=== PATIENT | female | born 1945 | race Caucasian/White ===

== ENCOUNTER 2016-08-12 06:28 | Emergency (ER) | payer MEDICAID ==
[2016-08-12 07:37] LABS: HEMATOCRIT 32.5 % (35.0-45.0); HEMOGLOBIN 10.9 gm/dL (11.7-16.1); MEAN CORPUSCULAR HEMOGLOBIN 30.5 pg (27.0-31.0); MEAN CORPUSCULAR HGB CONC 33.5 pg (28.0-36.0); PLATELET COUNT 252 Th/cmm (150-400); RED BLOOD COUNT 3.57 Mil/cmm (3.80-5.20); RED CELL DISTRIBUTION WIDTH 14.8 % (11.5-20.0); WHITE BLOOD COUNT 5.2 Th/cmm (4.8-10.8)
[2016-08-12 07:54] LABS: INR 1.1 (0.5-1.4)
[2016-08-12 08:00] LABS: ALB/GLOB RATIO 0.8 (1.0-1.8); ANION GAP 10.6 (7.0-16.0); BILIRUBIN,TOTAL 0.4 mg/dL (0.3-1.0); BUN/CREATININE RATIO 8.7; CALCIUM SERUM 9.5 mg/dL (8.6-10.3); CHOLESTEROL 108 mg/dL (<200); POTASSIUM SERUM 4.6 mEq/L (3.5-5.1); TRIGLYCERIDES 137 mg/dL (<150)
--- NOTE | 2016-08-12 08:39 | ED Physician Chart ---
Chief Complaint/HPI - Patient Information Date Seen:: 08/12/16 Time Seen:: 06:45 Chief Complaint:: cough History of Present Illness:: THIS IS A 70 YO FEMALE DIABETIC DIALYSIS PATIENT WITH A COUGH TREATED BY HER PMD WITH Z-LEN. SHE STATES THAT SHE IS STILL COUGHING ABOUT THE SAME. SHE HAD DIALYSIS YESTERDAY. SHE DENIES FEVER OVER THE LAST FEW DAYS. Allergies:: Allergies Allergy/AdvReac Type Severity Reaction Status Date / Time No Known Allergies Allergy Verified 05/17/16 16:44 Vitals:: Vital Signs - 8 hr 08/12/16 06:35 Temp 97.8 F HR 66 RR 20 BP 131/80 O2 Sat % 97 Historian:: Patient, Family Member Review:: Nurse's Note Reviewed Review of Systems - Review of Systems General/Constitutional: No fever, No chills, No weight loss, No weakness, No diaphoresis, No edema, No loss of appetite Skin: No skin lesions, No rash, No bruising Head: No headache, No light-headedness Eyes: No loss of vision, No pain, No diplopia ENT: No earache, No nasal drainage, No sore throat, No tinnitus Neck: No neck pain, No swelling, No thyromegaly, No stiffness, No mass noted Cardio Vascular: No chest pain, No palpitations, No PND, No orthopnea, No edema Pulmonary: No SOB, Cough, No sputum, No wheezing GI: No nausea, No vomiting, No diarrhea, No pain, No melena, No hematochezia, No constipation, No hematemesis G/U: No dysuria, No frequency, No hematuria Musculoskeletal: No bone or joint pain, No back pain, No muscle pain Endocrine: No polyuria, No polydipsia Psychiatric: No prior psych history, No depression, No anxiety, No suicidal ideation Hematopoietic: No bruising, No lymphadenopathy Allergic/Immuno: No urticaria, No angioedema Neurological: No syncope, No focal symptoms, No weakness, No paresthesia, No headache, No seizure, No dizziness, No confusion, No vertigo Past Medical History - Past Medical History Obtainable: Yes Past Medical History: HTN, DM, ESRD Family History: None Social History: Non Smoker, No Alcohol, No Drug Use Surgical History: other (CATHETER PLACEMENT) Psychiatricy History: None Medication: Reviewed Family Medical History - Family Member Mother History Unknown: Yes Ethnicity: Living Status: Hx Family Diabetes: Yes Other Medical History: Lung Disease Physical Exam - Physical Examination General/Constitutional: Awake, Well-developed, well-nourished, Alert, No distress, GCS 15, Non-toxic appearing, Ambulatory Head: Atraumatic Eyes: Lids, conjuctiva normal, PERRL, EOMI Skin: Nl inspection, No rash, No skin lesions, No ecchymosis, Well hydrated, No lymphadenopathy ENMT: External ears, nose nl, Nasal exam nl, Lips, teeth, gums nl Neck: Nontender, Full ROM w/o pain, No JVD, No nuchal rigidity, No bruit, No mass, No stridor Respiratory: Nl effort/Exclusion, Clear to Auscultation Other Respiratory comments:: BILATERAL MILD WHEEZES BUT NO RALES HEARD. Cardio Vascular: RRR, No murmur, gallop, rubs, NL S1 S2 GI: No tenderness/rebounding/guarding, No organomegaly, No hernia, Normal BS's, Nondistended, No mass/bruits, No McBurney tenderness : No CVA tenderness Extremities: No tenderness or effusion, Full ROM, normal strength in all extremities, No edema, Normal digits & nails Neuro/Psych: Alert/oriented, DTR's symmetric, Normal sensory exam, Normal motor strength, Judgement/insight normal, Mood normal, Normal gait, No focal deficits Misc: normal gait, Normal back, No paraspinal tenderness Labs/Radiology/EKG Results - Lab Results Results: Laboratory Tests 08/12/16 08/12/16 08/12/16 07:20 07:20 07:20 WBC 5.2 RBC 3.57 L Hgb 10.9 L Hct 32.5 L MCV 91.0 MCH 30.5 MCHC Differential 33.5 RDW 14.8 Plt Count 252 MPV 7.0 PT 11.0 INR 1.10 PTT (Actin FS) 27.5 Sodium Potassium Chloride Carbon Dioxide Anion Gap BUN Creatinine Est GFR ( Amer) Est GFR (Non-Af Amer) BUN/Creatinine Ratio Glucose Calcium Total Bilirubin AST ALT Alkaline Phosphatase Troponin I Total Protein Albumin Globulin Albumin/Globulin Ratio Triglycerides 137 Cholesterol 108 LDL Cholesterol Direct 46 L HDL Cholesterol 25 08/12/16 08/12/16 07:20 07:20 WBC RBC Hgb Hct MCV MCH MCHC Differential RDW Plt Count MPV PT INR PTT (Actin FS) Sodium 135 L Potassium 4.6 Chloride 97 L Carbon Dioxide 32.0 H Anion Gap 10.6 BUN 52 H Creatinine 6.0 H* Est GFR ( Amer) 8.9 Est GFR (Non-Af Amer) 7.4 BUN/Creatinine Ratio 8.7 Glucose 79 Calcium 9.5 Total Bilirubin 0.4 AST 42 H ALT 22 Alkaline Phosphatase 94 Troponin I 0.26 H* D Total Protein 7.3 Albumin 3.3 L Globulin 4.0 Albumin/Globulin Ratio 0.8 L Triglycerides Cholesterol LDL Cholesterol Direct HDL Cholesterol ED Septic Shock - . Is Septic Shock (SBP<90, OR Lactate>4 mmol\L) present?: No - <6hrs of presentation: Vital Signs: Vital Signs - 8 hr 08/12/16 06:35 Temp 97.8 F HR 66 RR 20 BP 131/80 O2 Sat % 97 Reassessment (Disposition) - Reassessment Reassessment Condition:: Improved - Diagnosis Diagnosis:: BRONCHITIS ESRD DIABETES MELLITUS - Aftercare/Follow up Instructions Aftercare/Follow-Up Instructions:: Counseled pt regarding lab results/diagnosis & need follow up, Refer to Discharge Instructions, Counseled pt & family regarding lab results/diagnosis & need follow up Medication Prescribed:: PREDNISONE - Patient Disposition Discharge/Transfer:: Home Condition at Disposition:: Improved ED Discharge Plan - Patient Disposition Admit/Discharge/Transfer: PT DISCHARGED HOME Condition at Disposition: Improved Additional Instructions: FINISH THE Z-LEN TAKE THE NEW MEDICINE SEE YOU PMD ON SUNDAY RETURN FOR ANY PROBLEM
--- NOTE | 2016-08-12 10:06 | Diagnostic Imaging Report ---
Portable chest x-ray History: Shortness of breath Allowing for portable technique the heart size is normal. No focal pulmonary parenchymal processes. No hilar or mediastinal abnormalities. Impression: No acute abnormalities.
[2016-08-12 12:31] LABS: BAND NEUTROPHILE 2 % (0-10); EOSINOPHIL 2 % (0-5); NEUTROPHILS 54 % (40-80); PLATELET ESTIMATE ADEQUATE (NORMAL); PLATELET MORPHOLOGY NORMAL (NORMAL); TOTAL CELLS COUNTED 100
== END 2016-08-12 09:37 | disposition home or self-care (01) ==
LOC: ER 06:28
DX: J40 Bronchitis, not specified as acute or chronic (principal); E11.22 Type 2 diabetes mellitus with diabetic chronic kidney disease; I12.0 Hypertensive chronic kidney disease with stage 5 chronic kidney disease or end stage renal disease; N18.6 End stage renal disease
CPT/HCPCS: 99285; 71010; 96372 ×2; 93005; 84484; 36415; 84443; 86592; 85007; 85027; 85610; 85730; 80053; 80061; 87040 ×2; J0696 ×2; J2930; A4216; J2001

== ENCOUNTER 2016-08-13 21:26 | Inpatient (IN) | payer MEDICAID ==
--- NOTE | 2016-08-13 22:03 | ED Physician Chart ---
Chief Complaint/HPI - Patient Information Date Seen:: 08/13/16 Time Seen:: 21:50 Chief Complaint:: Recurrent nausea and vomiting since yesterday. History of Present Illness:: Brought in by [id number] Lucia for the above reason. Pt is Yakut speaking. Interpretation is provided by her [id number] Lucia per pt's request. Vomitus consists of gastric content. No hematemesis. Last BM 2 days ago that was normal in color/consistency. No hematochezia or melena. No lightededness. Pt states that her nausea/vomiting began to occur after she was started on Zithromax for acute bronchitis. Her cough has subsided. No abdominal pain, chest pain or other bodily pain or discomfort. No dyspnea. Allergies:: Allergies Allergy/AdvReac Type Severity Reaction Status Date / Time No Known Allergies Allergy Verified 05/17/16 16:44 Vitals:: see Nurse Note. Historian:: Patient, Family Member ([id number] Lucia.) Family MD/PCP:: Dr. Wray. LMP:: Postmenopausal Review:: Nurse's Note Reviewed Review of Systems - Review of Systems Skin: No skin lesions, No rash, No bruising Head: No headache, No light-headedness Eyes: No loss of vision, No pain, No diplopia ENT: No earache, No nasal drainage, No sore throat, No tinnitus Neck: No neck pain, No swelling, No thyromegaly, No stiffness, No mass noted Cardio Vascular: No chest pain, No palpitations, No PND, No orthopnea, No edema Pulmonary: No SOB, No cough, No sputum, No wheezing GI: Nausea, Vomiting (see HPI.), No diarrhea, No pain, No melena, No hematochezia, No constipation, No hematemesis G/U: No dysuria, No frequency, No hematuria Musculoskeletal: No bone or joint pain, No back pain, No muscle pain Endocrine: No polyuria, No polydipsia Psychiatric: No prior psych history Hematopoietic: No bruising, No lymphadenopathy Allergic/Immuno: No urticaria, No angioedema Neurological: No syncope, No focal symptoms, No weakness, No paresthesia, No headache, No seizure, No dizziness, No confusion, No vertigo Past Medical History - Past Medical History Past Medical History: DM, Dyslipidemia, ESRD (on hemodialysis M, W, F.), Other ( chronic anemia) Family History: Diabetes Melitus (mother), HTN (mother) Social History: Non Smoker, No Alcohol, No Drug Use, , Other (lives with her .) Employment:: Retired. Surgical History: (31 y/a.), other (Bilateral big toe resections about 11 y/a.) Psychiatricy History: None Medication: Reviewed Family Medical History - Family Member Mother History Unknown: Yes Ethnicity: Living Status: Hx Family Diabetes: Yes Physical Exam - Physical Examination General/Constitutional: Awake, Well-developed, well-nourished, Alert, No distress, Non-toxic appearing, Ambulatory Other Gen/Cons comments:: Breathes comfortably, speaks clearly, and ambulates without difficulty. Head: Atraumatic Eyes: Lids, conjuctiva normal, PERRL, EOMI Skin: Nl inspection, No rash, No skin lesions, No ecchymosis, Well hydrated, No lymphadenopathy ENMT: External ears, nose nl, Nasal exam nl, Oropharynx nl, Tonsils nl Neck: Nontender, Full ROM w/o pain, No JVD, No nuchal rigidity, No bruit, No mass, No stridor Respiratory: Nl effort/Exclusion, Clear to Auscultation, No Wheeze/Rhonchi/Rales Cardio Vascular: RRR, No murmur, gallop, rubs, Carotid/Femoral/Distal pulses equal bilaterally GI: No tenderness/rebounding/guarding, No organomegaly, No hernia, Normal BS's, Nondistended, No mass/bruits, No McBurney tenderness Other GI comments:: obese but soft. Extremities: No edema Neuro/Psych: Alert/oriented (oriented x 3), Mood normal, Normal gait, No focal deficits Other Neuro/Psych comments:: spontaneous movements noticed in all 4 extremities. Labs/Radiology/EKG Results - Lab Results Results: Laboratory Tests 08/13/16 08/13/16 08/13/16 22:31 22:31 22:31 WBC RBC Hgb Hct MCV MCH MCHC Differential RDW Plt Count MPV Band Neutrophils % Neutrophils (Manual) Lymphocytes Monocytes Platelet Estimate PT 10.8 INR 1.08 PTT (Actin FS) 24.8 L Sodium 133 L Potassium 5.5 H Chloride 91 L Carbon Dioxide 24.1 Anion Gap 23.4 H BUN 114 H* Creatinine 8.9 H* Est GFR ( Amer) 5.7 Est GFR (Non-Af Amer) 4.7 BUN/Creatinine Ratio 12.8 Glucose 189 H Calcium 9.8 Total Bilirubin 0.4 AST 27 ALT 18 Alkaline Phosphatase 93 Creatine Kinase 103 Troponin I 0.12 H* D Total Protein 7.7 Albumin 3.7 Globulin 4.0 Albumin/Globulin Ratio 0.9 L 08/13/16 22:31 WBC 10.3 D RBC 3.44 L Hgb 10.4 L Hct 31.3 L MCV 91.1 MCH 30.3 MCHC Differential 33.3 RDW 15.0 Plt Count 290 MPV 7.3 Band Neutrophils % 2 Neutrophils (Manual) 85 H Lymphocytes 10 L Monocytes 3 Platelet Estimate ADEQUATE PT INR PTT (Actin FS) Sodium Potassium Chloride Carbon Dioxide Anion Gap BUN Creatinine Est GFR ( Amer) Est GFR (Non-Af Amer) BUN/Creatinine Ratio Glucose Calcium Total Bilirubin AST ALT Alkaline Phosphatase Creatine Kinase Troponin I Total Protein Albumin Globulin Albumin/Globulin Ratio Urinalysis pending. - EKG Interpretations EKG Time:: 22:30 Rhythm: NSR Rate: 63 Comments:: Cannot r/o old anterior LA, age undetermined. No acute ischemic changes. Assessment - Assessment Critical Care Time: 35 minutes approx. ED Septic Shock - . Is Septic Shock (SBP<90, OR Lactate>4 mmol\\L) present?: No Reassessment (Disposition) - Reassessment Reassessment:: 2319 Pt remains stable. Lab results just became available. EKG, and available lab findings have been reviewed with pt. Management plan has been discussed. Interpretation by [id number] Lucia. Dr. Spivey is to be contacted. Pt has been put on NTP 1" topically to improve coronary perfusion and to lower blood pressure. 2349 Case was discussed with Dr. Spivey with H & P, EKG, and lab findings reviewed. He concurred to have pt treated with Kayexalate 30 gm po. Pt is to be admitted to ICU under his care. Reassessment Condition:: Improved - Diagnosis Diagnosis:: Recurrent nausea/vomiting related to medication effect of Zithromax. Elevated troponin I of unknown significance. Consider ischemic heart disease. HTN, poorly controlled, improved. ESRD, on hemodialysis. - Patient Disposition Admitted to:: ICU Admitting Medical Physician:: Omar Spivey Time:: 23:55 Condition at Disposition:: Stable, Improved
[2016-08-13 22:45] LABS: HEMATOCRIT 31.3 % (35.0-45.0); HEMOGLOBIN 10.4 gm/dL (11.7-16.1); MEAN CELL VOLUME 91.1 fl (81-100); MEAN CORPUSCULAR HEMOGLOBIN 30.3 pg (27.0-31.0); MEAN CORPUSCULAR HGB CONC 33.3 pg (28.0-36.0); MEAN PLATELET VOLUME 7.3 fl; PLATELET COUNT 290 Th/cmm (150-400); RED BLOOD COUNT 3.44 Mil/cmm (3.80-5.20)
[2016-08-13 22:48] LABS: WHITE BLOOD COUNT 10.3 Th/cmm (4.8-10.8)
[2016-08-13 22:55] LABS: ALB/GLOB RATIO 0.9 (1.0-1.8); ANION GAP 23.4 (7.0-16.0); BILIRUBIN,TOTAL 0.4 mg/dL (0.3-1.0); BUN/CREATININE RATIO 12.8; CALCIUM SERUM 9.8 mg/dL (8.6-10.3); CARBON DIOXIDE 24.1 mEq/L (21.0-31.0); POTASSIUM SERUM 5.5 mEq/L (3.5-5.1)
[2016-08-13 22:56] LABS: INR 1.08 (0.5-1.4); PROTHROMBIN TIME (TEST) 10.8 SECONDS (9.5-11.5)
[2016-08-13 23:07] LABS: CREATININE - SERUM 8.9 mg/dL (0.6-1.2)
[2016-08-13 23:14] LABS: BAND NEUTROPHILE 2 % (0-10); NEUTROPHILS 85 % (40-80); PLATELET ESTIMATE ADEQUATE (NORMAL); TOTAL CELLS COUNTED 100
[2016-08-13] MEDS ORDERED: NITROGLYCERIN OINT 2% 1 INCH PACKET TP STA (23:22)
[2016-08-13] MEDS ORDERED: NITROGLYCERIN OINT 2% 1 INCH PACKET TP ONE (23:41)
[2016-08-14] MEDS ORDERED: Hydrocodone/APAP 10 mg/325 mg Tab PO PRN (01:40)
[2016-08-14] MEDS ORDERED: Magnesium Hydroxide (MOM) 30 mL UDC PO PRN (01:40)
[2016-08-14] MEDS ORDERED: Maalox 30 mL Cup PO PRN (01:40)
[2016-08-14] MEDS: Guaifenesin DM 10 ML UDC PO PRN (05:25)
--- NOTE | 2016-08-14 05:29 | History & Physical ---
CHIEF COMPLAINT: The patient has recurrent nausea and vomiting. HISTORY OF PRESENT ILLNESS: The patient is a 70-year-old female brought in by her [id number] for recurrent nausea and vomiting since yesterday. The patient's vomitus had gastric content. No hematemesis. Last time was 2 days ago and was normal in color and consistency. No hematochezia or melena. The patient's nausea and vomiting began to correct, she was started on Zithromax for acute bronchitis. Her cough has subsided. Dull pain, chest pain are the complaints. ALLERGIES: No known allergies. PAST MEDICAL HISTORY: Dyslipidemia, bronchitis, anemia, end-stage renal disease, diabetes mellitus. PAST SURGICAL HISTORY: C section, bilateral big toe resection, AV fistula. SOCIAL HISTORY: No reports of smoking or drug use. MEDICATIONS: See med rec form. PHYSICAL EXAMINATION: GENERAL: The patient is awake, alert, nontoxic appearing. VITAL SIGNS: Temperature 98.8, pulse 86, blood pressure 192/84, respirations 19, O2 saturation 97% on room air. HEENT: Normocephalic, atraumatic. Extraocular movements intact. Oropharynx clear. NECK: Supple, no thyromegaly or lymph node. RESPIRATORY: Clear, no wheeze or rhonchi. CARDIOVASCULAR: S1, S2, no murmurs, rubs or gallops. GASTROINTESTINAL: Soft, nontender, nondistended, positive bowel sounds. GENITOURINARY: No CVA tenderness or suprapubic tenderness. EXTREMITIES: Equal pulses bilaterally. No C/C/E. SKIN: Negative. NEUROLOGIC: Cranial nerves intact. Extraocular movements are intact. Sensation is intact. Motor strength is intact. PSYCHIATRIC: Negative. LABORATORY STUDIES: Labs on admission, hematology, WBC 10.3, hemoglobin 10.4, hematocrit 31.3, platelet count of 290, 85% neutrophils, 10% lymphocytes. PT 10.8, INR 1.08, PTT 24.8. Chemistry, sodium 133, potassium 5.5, chloride 91, bicarbonate 24, anion gap 23.4, BUN 114, creatinine 8.9, GFR is 4.7, glucose is 189, calcium 9.8, total bili 0.4, AST 27, ALT 18, alkaline phosphatase 93, creatinine kinase 103, troponin is 0.12, total protein 7.7, albumin 3.7. RADIOLOGY: No new results. ASSESSMENT: 1. Intermittent nausea and vomiting. 2. Elevated troponin level. 3. Hypertension (controlled). 4. End-stage renal disease. 5. Hemodialysis dependent. 6. Diabetes mellitus. 7. Dyslipidemia. 8. Anemia of chronic disease. 9. Status post arteriovenous fistula. PLAN: The patient was admitted to ICU. Nephrology consultation, Dr. Wray. Cardiology consultation, Dr. Gen Spivey. Thank you very much. JOB# [id number]
[2016-08-14 05:35] LABS: % BASOPHILS 0.2 % (0.0-2.0); % EOSINOPHILS 0.6 % (0.0-5.0); % LYMPHOCYTES 12.8 % (20.0-50.0); % MONOCYTES 4.8 % (2.0-10.0); % NEUTROPHILS 81.6 % (40.0-80.0); HEMATOCRIT 31.4 % (35.0-45.0); HEMOGLOBIN 10.8 gm/dL (11.7-16.1); MEAN CORPUSCULAR HEMOGLOBIN 30.7 pg (27.0-31.0); MEAN CORPUSCULAR HGB CONC 34.5 pg (28.0-36.0); MEAN PLATELET VOLUME 7.6 fl; NEUTROPHILE ABSOLUTE 10.8 Th/cmm (1.8-8.0); PLATELET COUNT 302 Th/cmm (150-400); RED BLOOD COUNT 3.52 Mil/cmm (3.80-5.20); RED CELL DISTRIBUTION WIDTH 14.9 % (11.5-20.0)
[2016-08-14 05:48] LABS: WHITE BLOOD COUNT 13.2 Th/cmm (4.8-10.8)
[2016-08-14 05:57] LABS: ANION GAP 19.9 (7.0-16.0); BUN/CREATININE RATIO 12.9; CALCIUM SERUM 9.7 mg/dL (8.6-10.3); CARBON DIOXIDE 26.5 mEq/L (21.0-31.0); POTASSIUM SERUM 5.4 mEq/L (3.5-5.1)
[2016-08-14 05:58] LABS: CREATININE - SERUM 9.2 mg/dL (0.6-1.2)
[2016-08-14] MEDS: Ferrous Sulfate 325 MG TAB PO SCH (08:23)
[2016-08-14] MEDS: Atorvastatin Calcium 10 MG TAB PO SCH (08:24)
[2016-08-14] MEDS: Hydrocodone/APAP 5mg/325mg Tab PO PRN ×2 (08:24→17:23)
[2016-08-14] MEDS ORDERED: CINACALCET HCL 30 MG PO SCH (09:00)
[2016-08-14] MEDS: INSULIN ASPART SLIDING SCALE 100 UNITS/ML UNIT SUBQ SCH ×3 (13:47→22:00)
[2016-08-14] MEDS: Vitamin B Complex w/Vitamin C Tab PO SCH (13:50)
[2016-08-14] MEDS ORDERED: VTE Chemical Prophylaxis Screen/Admission MC PRN (16:07)
[2016-08-14] MEDS: Ferrous Sulfate 300 MG/5 ML UDC PO SCH (17:22)
--- NOTE | 2016-08-14 17:37 | Admit Criteria Form ---
Admit Criteria Forms - Admit Criteria Diagnosis: VOMITING Clinical Indications for Admission to Inpatient Care ( Place 'X' for any and all applicable criteria): Admission is indicated for ANY ONE of the following(1)(2)(3): [X]I. Inpatient admission required rather than observation care because of ANY ONE of the following: [ ]i) Hemodynamic instability that is severe or persistent [X]ii) Vomiting that is severe or persistent [X]iii) Severe electrolyte abnormalities requiring inpatient care [ ]iv) Severe pain requiring acute inpatient management [ ]v) High fever or infection requiring inpatient admission as indicated by ANY ONE of the following(7)(8): [ ]1) Appropriate outpatient or observation care antimicrobial treatment unavailable, not effective, or not feasible [ ]2) Documented bacteremia [ ]3) Temp >104.9 degrees F (40.5 degrees C) (oral) [ ]4) Temp >103.1 degrees F (39.5 C) (oral) or <96.8 degrees F (36 C) (rectal) that does not respond to all emergency treatment measures [ ]vi) Acute renal failure [ ]vii) IV fluid to replace significant ongoing losses (greater than 3 L/m2 per day) [ ]viii) Parenteral nutrition regimen that must be implemented on inpatient basis [ ]ix) Other condition, treatment or monitoring requiring inpatient admission [ ]II. Complete or partial gastrointestinal obstruction [ ]III. Other cause of vomiting requiring hospitalization (eg, poisoning, increased intracranial pressure) [ ]IV. Vomiting due to significant metabolic derangement (eg, severe hypercalcemia, diabetic ketoacidosis) Extended stay beyond goal length of stay may be needed for(1)(4): [ ]a) Severe vomiting [ ]b) Persistent vomiting, vital sign changes, severe electrolyte imbalance , or diagnosed cause of vomiting that requires continued hospitalization (eg, gastrointestinal obstruction , increased intracranial pressure) [ ]c) Surgery to treat identified causes of vomiting (eg, bowel obstruction , intracranial process) [ ]d) Comorbid illness that requires inpatient care (eg, acute heart failure , renal failure) [ ]e) Need for inpatient endoscopy The original [employer] [employer] content created by Klaus Orourke has been revised. The portions of the content which have been revised are identified through the use of italic text or in bold, and Klaus Orourke has neither reviewed nor approved the modified material. All other unmodified content is copyright [facility]. Please see references footnoted in the original [facility] edition 2016 Admit Criteria Met?: Yes
[2016-08-15 05:03] LABS: MEAN CORPUSCULAR HGB CONC 34.2 pg (28.0-36.0); RED CELL DISTRIBUTION WIDTH 14.9 % (11.5-20.0)
[2016-08-15 05:10] LABS: % BASOPHILS 0.2 % (0.0-2.0); % EOSINOPHILS 0.7 % (0.0-5.0); % LYMPHOCYTES 15.7 % (20.0-50.0); % MONOCYTES 8.5 % (2.0-10.0); % NEUTROPHILS 74.9 % (40.0-80.0); HEMATOCRIT 31.8 % (35.0-45.0); HEMOGLOBIN 10.9 gm/dL (11.7-16.1); MEAN CELL VOLUME 91.6 fl (81-100); MEAN CORPUSCULAR HEMOGLOBIN 31.3 pg (27.0-31.0); MEAN PLATELET VOLUME 6.9 fl; NEUTROPHILE ABSOLUTE 8.8 Th/cmm (1.8-8.0); PLATELET COUNT 291 Th/cmm (150-400); RED BLOOD COUNT 3.47 Mil/cmm (3.80-5.20); WHITE BLOOD COUNT 11.8 Th/cmm (4.8-10.8)
[2016-08-15 05:39] LABS: ALB/GLOB RATIO 0.9 (1.0-1.8); ANION GAP 13.2 (7.0-16.0); BILIRUBIN,TOTAL 0.5 mg/dL (0.3-1.0); BUN/CREATININE RATIO 10.2; CALCIUM SERUM 9.1 mg/dL (8.6-10.3); CARBON DIOXIDE 30.9 mEq/L (21.0-31.0); PHOSPHOROUS 3.4 mg/dL (2.5-5.0); POTASSIUM SERUM 4.1 mEq/L (3.5-5.1)
[2016-08-15 05:48] LABS: CREATININE - SERUM 6.3 mg/dL (0.6-1.2)
[2016-08-15] MEDS: INSULIN ASPART SLIDING SCALE 100 UNITS/ML UNIT SUBQ SCH ×3 (07:30→17:11)
[2016-08-15] MEDS: Vitamin B Complex w/Vitamin C Tab PO SCH (08:25)
[2016-08-15] MEDS: Atorvastatin Calcium 10 MG TAB PO SCH (08:25)
[2016-08-15] MEDS: Ferrous Sulfate 325 MG TAB PO SCH (08:26)
[2016-08-15] MEDS: Ferrous Sulfate 300 MG/5 ML UDC PO SCH ×2 (08:42→17:13)
--- NOTE | 2016-08-15 11:39 | Diagnostic Imaging Report ---
Chest x-ray (2 views) HISTORY: Shortness of breath Compared with prior exam of August 12, 2016, questionable faint infiltrate within the right suprahilar region. Differences may be related to radiographic technique and positioning. Clinical correlation and follow-up recommended. Old right rib fracture again noted. The heart size appears generous. IMPRESSION: 1. Questionable faint infiltrate within the right suprahilar region. Differences since the prior exams may be related to radiographic technique and positioning. Clinical correlation and follow-up recommended.
[2016-08-15] MEDS ORDERED: Epoetin Alfa 20000 Units/mL Vial SUBQ SCH (15:42)
[2016-08-15] MEDS: Guaifenesin DM 10 ML UDC PO PRN (17:19)
[2016-08-15] MEDS ORDERED: GLUCAGON HCl 1 MG KIT IM PRN (21:40)
[2016-08-15] MEDS ORDERED: Dextrose 50% 50 mL Abboject IVP PRN (21:40)
[2016-08-16 04:53] LABS: % BASOPHILS 0.4 % (0.0-2.0); % EOSINOPHILS 1.2 % (0.0-5.0); % LYMPHOCYTES 20.2 % (20.0-50.0); % NEUTROPHILS 68.2 % (40.0-80.0); HEMATOCRIT 33.8 % (35.0-45.0); HEMOGLOBIN 11.5 gm/dL (11.7-16.1); MEAN CELL VOLUME 91.3 fl (81-100); MEAN PLATELET VOLUME 6.6 fl; NEUTROPHILE ABSOLUTE 5.6 Th/cmm (1.8-8.0); PLATELET COUNT 291 Th/cmm (150-400); RED BLOOD COUNT 3.71 Mil/cmm (3.80-5.20); RED CELL DISTRIBUTION WIDTH 14.8 % (11.5-20.0)
[2016-08-16 04:56] LABS: WHITE BLOOD COUNT 8.1 Th/cmm (4.8-10.8)
[2016-08-16 05:16] LABS: ALB/GLOB RATIO 0.9 (1.0-1.8); ANION GAP 13.8 (7.0-16.0); BILIRUBIN,TOTAL 0.5 mg/dL (0.3-1.0); BUN/CREATININE RATIO 9.4; CARBON DIOXIDE 28.8 mEq/L (21.0-31.0); PHOSPHOROUS 5.9 mg/dL (2.5-5.0); POTASSIUM SERUM 4.6 mEq/L (3.5-5.1)
[2016-08-16 05:39] LABS: CREATININE - SERUM 8.8 mg/dL (0.6-1.2)
[2016-08-16] MEDS: Vitamin B Complex w/Vitamin C Tab PO SCH (08:00)
[2016-08-16] MEDS: Ferrous Sulfate 300 MG/5 ML UDC PO SCH (09:00)
[2016-08-16] MEDS: Atorvastatin Calcium 10 MG TAB PO SCH (09:00)
[2016-08-16 10:38] LABS: ABG SOURCE Arterial; ALLEN TEST Positive; BE(B) 4.5 mmol/L (-3.0-3.0); FIO2 21; HCO3 29.2 mmol/L (20.0-26.0); pH 7.44 (7.35-7.45)
[2016-08-16] MEDS: INSULIN ASPART SLIDING SCALE 100 UNITS/ML UNIT SUBQ SCH ×3 (12:30→21:26)
--- NOTE | 2016-08-16 13:41 | Diagnostic Imaging Report ---
CT Chest without IV contrast HISTORY: Shortness of breath/pneumonia COMPARISON: Chest x-ray 08/15/2016. Technique: Axial images were obtained from the base of the neck to the upper abdomen without IV contrast. Reconstructions were made. Total DLP to 20, CTD I 0.7 Findings: Assessment of the mediastinum is limited due to lack of IV contrast. No evidence of mediastinal lymphadenopathy. Mild atherosclerosis is noted. Heart size is at the upper limits of normal. No pericardial effusion. There is marked fluid distention of the stomach with what appears to be fluid contents. There may be a hiatal hernia. Assessment of the lung pavon demonstrates hypoventilatory and atelectatic changes of the lungs with focal consolidative changes seen involving the posterior /inferior aspect of the right upper lobe and along the lung bases. Trace pleural fluid is seen bilaterally. There is a 3 mm nodular opacity of the right upper lobe (image 3, series 33). There is also faint 3 mm nodular opacity of the left upper lobe (image 54, series 7). The upper abdomen demonstrates a distended gallbladder with gallstones. Atherosclerosis is noted. Degenerative changes of the spine are noted. There is a 1 cm sclerotic focus along the posterior aspect of the T5 vertebral body. IMPRESSION: Marked fluid distention of the esophagus containing fluid and food contents. There is suggestion of a moderate size hiatal hernia, however, associated with achalasia and distal esophageal narrowing can also not be completely excluded. Noted the patient is also at increased risk for aspiration due to fluid and food contents within the esophagus.. Clinical correlation is recommended. Bibasal consolidative changes and focal consolidative changes involving the posterior/inferior aspect of the right upper lobe. Although findings may be due to compressive atelectasis, infiltrates in these regions cannot be excluded. Mild atherosclerotic vascular disease. Distended gallbladder with gallstones. Recommend short-term follow-up ultrasound. Tiny bilateral lung nodules, nonspecific and may be postinfectious or inflammatory in etiology. Follow-up surveillance CT exam in 12-18 months may be obtained for long-term assessment/monitoring. 1 cm sclerotic focus along the posterior aspect of the T5 vertebral body, nonspecific but but probably an incidental bone.
--- NOTE | 2016-08-16 18:33 | Consultation ---
REASON FOR CONSULTATION: Help the patient with abnormal chest x-ray with recent bronchitis. HISTORY OF PRESENT ILLNESS: This is a 70-year-old female patient of Dr. Wray and Dr. Spivey has been on a chronic dialysis for a year and a half, has a history of significant metabolic disease including history of hypertension and also history of dyslipoproteinemia, and history of anemia, history of diabetes mellitus and apparently the patient came in up here on and off for nausea and vomiting prior to coming to the hospital and as her symptoms gotten worse, the patient was admitted. Prior to coming to the hospital about a week before, had chronic bronchitis and had some coughing, some wheezing and some shortness of breath, but no chest pain and only ____ few course of antibiotic. No pleuritic chest pain, no swelling of the legs. She gets dialysis on a regular basis. Denies of any fever or any chills, etc. The patient has a history of loud snoring on and off according to the and at times increased breathing for few seconds. Weight has been not significantly changed. PAST MEDICAL HISTORY: 1. Recent bronchitis. 2. Chronic renal failure, on hemodialysis. 3. History of gastroparesis suggestive with possibly gastroesophageal reflux disease. 4. Suspect obstructive sleep apnea syndrome. SOCIAL HISTORY: Smoking history is nil. ALLERGIES: Allergy history is nil. CURRENT MEDICATIONS: See reconciliation list. PHYSICAL EXAMINATION: GENERAL: This is an elderly looking female, awake and alert, not in any acute distress. VITAL SIGNS: The patient's temperature is 97, heart rate is 60, blood pressure 143/47 and saturation is at lower 90s on room air. HEENT: Examination of the head is essentially unremarkable. Pupils appear to be equal and reacting to light. Oral cavity shows fair to poor dental hygiene. Throat shows small oropharyngeal opening. NECK: Short. No nodes in the neck could be palpated. Good bilateral carotid upstroke. CHEST: Shows occasional rhonchi with diminished air entry. HEART: Regular. ABDOMEN: Protuberant, soft and nontender. EXTREMITIES: Shows no peripheral edema. Poor pulsations. LABORATORY DATA: White count is 11.8, hemoglobin 10.9. Electrolytes are okay with BUN 64, creatinine 6.7 and troponin is 0.07 and other electrolytes are stable. IMAGING STUDIES: Chest x-ray portable technique shows some haziness in the right base with some possibly azygous lobe in right upper lobe on a single PA view. IMPRESSION: 1. The patient has a recent tracheobronchitis, stable. 2. Right-sided haziness, question is effusion or infiltrate. 3. Severe obstructive sleep apnea syndrome with hypertension, diabetes mellitus and dyslipoproteinemia. 4. Nausea and vomiting, most likely this is from gastroesophageal reflux disease and gastroparesis. PLANS AND SUGGESTIONS: We will go and get a sputum culture. We will give inhaled bronchodilator and steroid. We will get a CT of chest for better evaluation. We will check the need for O2 and CO2 content, etc., and go from there. Thank you very much for letting me to see this patient. We will be glad to follow along with you. JOB# [id number]
--- NOTE | 2016-08-17 01:51 | Progress Notes ---
PROBLEM LIST: 1. Persistent nausea, vomiting. 2. Abnormal chest x-ray. 3. Renal failure, on hemodialysis. 4. Suspect obstructive sleep apnea syndrome. SYMPTOMS: Nil. The patient still cannot eat and keep the food down and no much coughing or much shortness of breath, etc. PHYSICAL EXAMINATION: VITAL SIGNS: Temperature is 99.4, blood pressure 147/88, saturation 98. ENT: Shows no new changes. CHEST: Shows diminished air entry. No other adventitious breath sounds. HEART: Regular. EXTREMITIES: Shows no peripheral edema. CT shows some ____mild pleural thickening with atelectasis, but striking thing is significant food material in esophagus with significant distention____, I suspect either achalasia or esophageal obstruction at the bottom for whatever reason. PLANS AND SUGGESTIONS: We will just keep n.p.o., continue rest of the treatment and consider doing early EGD. In the meantime, care and plan discussed with the patient's daughter at the bedside. JOB# [id number]
--- NOTE | 2016-08-17 04:41 | Progress Notes ---
SUBJECTIVE: The patient is asleep. The patient is on antibiotics. The patient is receiving inpatient hemodialysis. The patient is in ICU. PHYSICAL EXAMINATION: VITAL SIGNS: Temperature is 98, respiratory rate 16. CARDIOVASCULAR: S1, S2. RESPIRATORY: Clear GI: sodt, +bs LABORATORY DATA: CBC: seen Chemistry: Sodium 137, anion gap 13, glucose 80, calcium 9.1 total bili 0.5, AST 21, ALT 12, alk phos 74, troponin 0.07, albumin 3.3, globulin 3.7. Microbiology: MRSA screen from 08/14/2016 pending. ASSESSMENT: 1. Intractible nausea/vomiting resolved. 3. Hypertension. 4. End-stage renal disease. 5.other diagnosis per H&P and previous progress notes PLAN: Continue current medications. Obtain labs in a.m. JOB# [id number] MTDD
[2016-08-17 05:01] LABS: % BASOPHILS 0.3 % (0.0-2.0); % EOSINOPHILS 3.5 % (0.0-5.0); % MONOCYTES 11.3 % (2.0-10.0); % NEUTROPHILS 61.9 % (40.0-80.0); HEMATOCRIT 33.2 % (35.0-45.0); HEMOGLOBIN 11.5 gm/dL (11.7-16.1); MEAN CELL VOLUME 92.9 fl (81-100); MEAN CORPUSCULAR HEMOGLOBIN 32.1 pg (27.0-31.0); MEAN CORPUSCULAR HGB CONC 34.6 pg (28.0-36.0); MEAN PLATELET VOLUME 7.4 fl; NEUTROPHILE ABSOLUTE 4.5 Th/cmm (1.8-8.0); PLATELET COUNT 299 Th/cmm (150-400); RED BLOOD COUNT 3.58 Mil/cmm (3.80-5.20); RED CELL DISTRIBUTION WIDTH 14.9 % (11.5-20.0); WHITE BLOOD COUNT 7.3 Th/cmm (4.8-10.8)
--- NOTE | 2016-08-17 05:08 | Cardiology ---
PROCEDURE: Echocardiogram. REFERRING PHYSICIAN: Omar Spivey M.D. M-Mode measurements are as follows. Aortic root dimension in diastole is 2.1 cm. Aortic valve systolic separation is 1.9 cm. Left atrial dimension in systole is 3.1 cm. The mitral valve EP septal separation is 0.57 cm and mitral valve E/A ratio is 0.81. LV dimension in diastole is 2.9 and in systole 1.96. Interventricular septal thickness in diastole 1.74 and LV posterior wall thickness in diastole is 1.60 cm and ejection fraction is 60-65%. Doppler measurements and color Doppler showing that mitral valve VMax is 2.44 m/sec and tricuspid valve VMax is 1.32 m/sec. Aortic valve VMax is 1.45 m/sec and aortic valve systolic pressure gradient is 8.4 mmHg. Aortic valve area is 2.46 cm2. Left ventricular outflow tract velocity is 1.22 m/sec. Doppler showing that there is trace of mitral and tricuspid regurgitation, other valves are normal. M-Mode and 2D shows that LV dimension and second wall motion are normal. The aortic valve is slightly sclerotic with acute function in diastoles and in systole. Other valves are normal in thickness and motion. No pericardial effusion is present. CONCLUSION: 1. LV dimension and second wall motion are normal with ejection fraction of 60-65%. 2. Left ventricular hypertrophy. 3. The aortic valve is slightly sclerotic without stenosis or any diastolic or systolic dysfunction. 4. Mitral valve annulus is calcified with normal mitral valve function. 5. Other valves are normal in thickness and motion in diastoles and in systole. JOB# [id number]
[2016-08-17 05:12] LABS: ANION GAP 12.7 (7.0-16.0); BUN/CREATININE RATIO 7.1; CALCIUM SERUM 8.7 mg/dL (8.6-10.3); CARBON DIOXIDE 30.5 mEq/L (21.0-31.0); POTASSIUM SERUM 4.2 mEq/L (3.5-5.1)
[2016-08-17 05:24] LABS: CREATININE - SERUM 6.8 mg/dL (0.6-1.2)
[2016-08-17] MEDS: INSULIN ASPART SLIDING SCALE 100 UNITS/ML UNIT SUBQ SCH ×6 (07:00→23:01)
[2016-08-17] MEDS: Atorvastatin Calcium 10 MG TAB PO SCH (09:27)
[2016-08-17] MEDS: Ferrous Sulfate 300 MG/5 ML UDC PO SCH ×2 (09:27→17:43)
[2016-08-17] MEDS: Lactobacillus Rhamnosus 10 Billion CFU Capsule PO SCH (09:27)
[2016-08-17] MEDS: CINACALCET 30 MG PO SCH (09:37)
--- NOTE | 2016-08-17 11:03 | Diagnostic Imaging Report ---
Abdominal ultrasound HISTORY: Pain Exam is limited due to patient's size, body habitus, bowel gas. Limited views of the liver are unremarkable. No obvious abnormal masses.. The gallbladder is suboptimally visualized. Questionable intraluminal echogenic densities that may be associated with cholelithiasis. Common bile duct could not be visualized. No intrahepatic biliary dilatation is seen. Pancreas is incompletely seen due to bowel gas. The right kidney is diminished in size (8.6 x 3.5 x 4.7 cm). There appears to be an increase in cortical echogenicity that may reflect chronic parenchymal disease. No focal lesions or hydronephrosis. The left kidney appears normal in size. Questionable 1.0 cm cyst. The spleen is normal in size. No other obvious retroperitoneal or intra-abdominal abnormalities. IMPRESSION: 1. Very limited exam due to patient's size, body habitus, bowel gas 2. Suboptimal visualization of the gallbladder with questionable cholelithiasis. If needed, a radionuclide biliary scan (HIDA scan) would provide for further assessment of gallbladder function 3. Diminished size the right kidney with parenchymal changes that may reflect chronic cortical disease 4. Findings suggesting a left renal cyst
[2016-08-17] MEDS: Vitamin B Complex w/Vitamin C Tab PO SCH (14:48)
[2016-08-17] MEDS ORDERED: Metoclopramide 5 mg/mL 2mL Vial IVP SCH (21:00)
--- NOTE | 2016-08-18 01:03 | Progress Notes ---
SUBJECTIVE: The patient is still in ICU. The patient is awake and alert. The patient is on antibiotics. The patient is receiving inpatient hemodialysis. OBJECTIVE: VITAL SIGNS: Temperature 98.1, pulse 78, blood pressure 150/74, respiratory rate 18, O2 saturation 94% on room air. CARDIOVASCULAR: S1, S2. RESPIRATORY: Few rales. GASTROINTESTINAL: Soft. Positive bowel sounds. LABORATORY DATA: Hematology: WBC 8.1, hemoglobin 11.5, platelet count of 291, no left shift noted. ESR is 68. ABG, pH 7.4, pCO2 43, pO2 of 61, bicarbonate 29. Chemistry: Sodium 136, potassium 4.6, chloride 98, bicarbonate 28, anion gap 13, BUN 83, creatinine 8.8, glucose is 67, calcium 9.0, phosphorous 5.9, total bilirubin 0.5. AST 17, ALT 11 Total protein 7.1, albumin 3.3. Microbiology: MRSA from 08/14/2016 negative. Radiology: Chest CT from 08/15/2016 shows marked fluid distention containing fluid and food contents. There is a suggestion of moderate-sized hiatal hernia; however, nan not be excluded. The patient has an increased risk for aspiration. Bibasilar consolidation changes and focal consolidation changes involving the posterior and inferior aspect of the right upper lobe, mild atherosclerotic vascular disease. There is a gallbladder with gallstones. Tiny bilateral nodules nonspecific. ASSESSMENT: 1. Intractable nausea and vomiting (resolved). 2. Elevated troponin level. 3. Hypertension. 4. End-stage renal disease. 5. Hemodialysis dependent. 6. Diabetes mellitus. 7. Dyslipidemia. 8. Anemia of chronic disease. 9. Status post atrioventricular fistula. 10. Esophageal dilation. 11. Hyperphosphatemia. 12. Esophageal dilation PLAN: Continue current medication and treatment. The patient has been made n.p.o. We will obtain GI consultation regarding esophageal dilation. Further consults. JOB# [id number] [facility]
[2016-08-18] MEDS: INSULIN ASPART SLIDING SCALE 100 UNITS/ML UNIT SUBQ SCH ×5 (05:40→22:36)
[2016-08-18 05:59] LABS: % BASOPHILS 0.5 % (0.0-2.0); % EOSINOPHILS 4.9 % (0.0-5.0); % LYMPHOCYTES 27.8 % (20.0-50.0); % MONOCYTES 9.5 % (2.0-10.0); % NEUTROPHILS 57.3 % (40.0-80.0); HEMATOCRIT 32.4 % (35.0-45.0); HEMOGLOBIN 11.1 gm/dL (11.7-16.1); MEAN CELL VOLUME 90.4 fl (81-100); MEAN CORPUSCULAR HEMOGLOBIN 30.9 pg (27.0-31.0); MEAN CORPUSCULAR HGB CONC 34.2 pg (28.0-36.0); MEAN PLATELET VOLUME 7.2 fl; NEUTROPHILE ABSOLUTE 4.2 Th/cmm (1.8-8.0); PLATELET COUNT 323 Th/cmm (150-400); RED BLOOD COUNT 3.58 Mil/cmm (3.80-5.20); RED CELL DISTRIBUTION WIDTH 14.7 % (11.5-20.0); WHITE BLOOD COUNT 7.3 Th/cmm (4.8-10.8)
--- NOTE | 2016-08-18 06:41 | Progress Notes ---
PROBLEM LIST: 1. Abnormal chest x-ray. 2. Possibly esophageal obstruction. 3. Metabolic syndrome. 4. Questionable early infected right upper lobe lesion. The patient has been moved to the regular ROLANDO. No specific new symptoms and no respiratory distress, etc., and has been n.p.o. for possibly avoiding aspiration on exam. OBJECTIVE: VITAL SIGNS: Temperature is 98.7, blood pressure 140/70 and saturation 98 on room air. ENT: Shows no new changes. CHEST: Shows diminished air entry with occasional rhonchi. HEART: Regular. ABDOMEN: Soft and nontender. LABORATORY DATA: The patient's white count is 7.3 and hemoglobin 11.5. Creatinine is 6.8. ASSESSMENT: The patient is clinically stable respiratory dangelo with questionable infiltrate versus chronic changes even at the bases. PLANS AND SUGGESTIONS: We will continue current GI issue or we will watch it for now. Repeat chest x-ray in next day or two and go from there. JOB# [id number]
[2016-08-18] MEDS ORDERED: D5-0.45NS 1,000 ML IV SCH (07:33)
[2016-08-18] MEDS: CINACALCET 30 MG PO SCH ×2 (09:00→16:23)
[2016-08-18] MEDS: Ferrous Sulfate 300 MG/5 ML UDC PO SCH ×3 (09:00→16:34)
[2016-08-18] MEDS: Lactobacillus Rhamnosus 10 Billion CFU Capsule PO SCH (09:00)
[2016-08-18] MEDS: Vitamin B Complex w/Vitamin C Tab PO SCH (09:00)
[2016-08-18] MEDS ORDERED: Lactated Ringer 1,000 ML IV SCH (09:45)
[2016-08-18] MEDS: Atorvastatin Calcium 10 MG TAB PO SCH (11:31)
[2016-08-18] MEDS: Pantoprazole 40 mg EC Tab PO SCH (12:00)
--- NOTE | 2016-08-18 12:12 | Diagnostic Imaging Report ---
CHEST X-RAY: AP view INDICATION: Shortness of breath, pneumonia COMPARISON: Chest x-ray on 08/15/[address] of the chest on 08/15/2016 Findings: Chronic lung changes are seen with no focal consolidation. Increased left basal lung markings are noted. Mild cardiomegaly is noted. IMPRESSION: Chronic lung changes with no focal consolidation identified. Left basal increased lung markings most likely due to atelectasis No radiographic evidence of sis CHF. Please also refer to recent CT chest findings for further findings of dilated esophagus.
--- NOTE | 2016-08-18 19:54 | Consultation ---
REASON FOR CONSULTATION: Nausea, vomiting, abnormal x-ray. HISTORY OF PRESENT ILLNESS: This consult was obtained through the courtesy of Dr. Spivey for this 70-year-old with history of hyperlipidemia, diabetes and end-stage renal disease on hemodialysis, admitted to the hospital for nausea and vomiting. She was found to have abnormal troponin. The patient was admitted to ICU, was there for a couple of days. Meanwhile, she had a CT of the chest, which showed dilated esophagus with possible achalasia. GI consult was called in for further evaluation. The patient is lethargic, asleep, not able to provide any history. Information was obtained from her [id number]. PAST MEDICAL HISTORY: Hyperlipidemia, end-stage renal disease, diabetes. PAST SURGICAL HISTORY: She had shunt-related surgeries. SOCIAL HISTORY: Nonsmoker, nonalcoholic, non IV drug abuser. FAMILY HISTORY: Noncontributory. ALLERGIES: No known drug allergies. MEDICATIONS: The patient is on Tylenol, hydrocodone, Lipitor, Zithromax, PhosLo, Catapres, Epogen, vitamin D, Pepcid, iron, folate, Neurontin, glucagon, Robitussin, Culturelle. REVIEW OF SYSTEMS: Unobtainable. PHYSICAL EXAMINATION: GENERAL: The patient is asleep. VITAL SIGNS: Blood pressure is 114/59, heart rate is 67, respiratory rate 17, temperature is 97.8. HEAD AND NECK: Pupils reactive to light. Extraocular muscles could not be tested. Oral cavity, no lesion. NECK: Supple. No jugular venous distention. No carotid bruit. No lymph nodes. CHEST: Showed good respiratory movements. LUNGS: Showed few rhonchi. CARDIOVASCULAR SYSTEM: Regular rate and rhythm. No murmur or gallop. ABDOMEN: Soft. Positive bowel sounds. There is abdominal distention. Abdomen is soft ____ and there are good bowel sounds. EXTREMITIES: No edema. CENTRAL NERVOUS SYSTEM: Unable to evaluate. LABORATORY DATA: H and H are 11.5 and 33.2 with normal white count. CAT scan as stated above. Impression is a 70-year-old with multiple medical problems, now with esophageal dilation. ASSESSMENT AND PLAN: Esophageal dilation with air-fluid level, rule out achalasia versus esophageal stricture versus upper gastrointestinal malignancy. RECOMMENDATIONS: 1. Keep the patient n.p.o. 2. Reglan. 3. EGD in the morning. 4. Further recommendations to follow depending on the above. If the patient really has achalasia, might need to have [facility] or even surgery. Other medical problems such as hyperlipidemia, diabetes, end-stage renal disease, etc., as per Dr. Spivey. Thank you, Dr. Spivey, for allowing me to participate in the care of this patient. If you have any further questions, please let me know. JOB# [id number]
--- NOTE | 2016-08-18 20:18 | Progress Notes ---
The patient is awake and alert. The patient is receiving inpatient hemodialysis. The patient is awaiting NG-tube. PHYSICAL EXAMINATION: VITAL SIGNS: Temperature 97.8, pulse 67, blood pressure 114/59, respirations 17, O2 98% on room air. CARDIOVASCULAR: S1, S2. RESPIRATORY: Clear. ABDOMEN: Soft. Positive bowel sounds. LABORATORY DATA: Hematology: WBC 7.3, hemoglobin 11.5, hematocrit 33.2, platelet count per labs 11% monocytes. Chemistry: Sodium 138, potassium 4.2, chloride per labs, bicarbonate 30, anion gap 12, BUN 48, creatinine 6.8, GFR is 6.4, glucose 116, calcium 8.7. Microbiology: No new microbiology studies. Radiology: No new changes. IMPRESSION: 1. Intractable nausea and vomiting. 2. Hypertension. 3. End-stage renal disease. 4. Dyslipidemia. 5. Anemia. 6. Diabetes mellitus. 7. Status post section. 9. Status post arteriovenous fistula. 10. Esophageal distention. 11. Cholelithiasis. 12. Hyperglycemia. PLAN: Continue current medication and treatment. Obtain labs in the a.m. Obtain inpatient hemodialysis. The patient is scheduled for EGD tomorrow. Further consults. JOB# [id number] ZULEMA
--- NOTE | 2016-08-18 21:23 | Operative Report ---
INDICATION FOR PROCEDURE: Nausea, vomiting, abnormal CAT scan showing dilated esophagus with possible stricture or achalasia. CONSENT: Informed consent was obtained from the patient and her family after outlining benefits and risks including infection, bleeding, perforation, . ANESTHESIA USED: Propofol given by anesthesiologist. PREOPERATIVE DIAGNOSES: 1. Nausea and vomiting. 2. Achalasia. POSTOPERATIVE DIAGNOSES: 1. Esophagitis. 2. Gastritis. DESCRIPTION OF PROCEDURE: The patient was placed in left lateral position. Upper Olympus endoscope was introduced into the mouth and advanced to the esophagus, which was intubated under direct visualization. Esophageal mucosa was examined on the way down. It showed some retained food, so it was dilated. GE junction was identified. It was not strictured and there were no masses noted there. The scope was advanced to the stomach, where the gastric mucosa was examined and it showed gastritis. There were areas of erosions involving the body and antrum. Scope was advanced through the pylorus to the duodenum, where the bulb and second part were examined and they were both normal. Scope was withdrawn to the stomach and retroflexed to examine the cardia and fundus. It showed a small hiatal hernia. Scope was then straightened, withdrawn to the esophagus. There was only limited amount of old food seen there that is a kind of gelatinous. It was washed down easily. There was couple of erosions seen just about half an inch above the Z-line. Scope was advanced to the stomach. Biopsies were taken from the antrum for ROSALINO test, then withdrawn to the esophagus, where biopsies were taken from these areas of erosions. Scope was then withdrawn. The patient tolerated the procedure well. There were no immediate postoperative complications. RECOMMENDATIONS: 1. Follow up biopsy results. 2. Treat H. pylori if positive. 3. Switch from Pepcid to Protonix. 4. Consider outpatient motility and manometry studies. Thank you, Dr. Spivey, for allowing me to participate in the care of this patient. If you have any further questions, please let me know. JOB# [id number]
[2016-08-19 06:52] LABS: ANION GAP 10.6 (7.0-16.0); BUN/CREATININE RATIO 6.6; CALCIUM SERUM 8.6 mg/dL (8.6-10.3); CARBON DIOXIDE 28.5 mEq/L (21.0-31.0); POTASSIUM SERUM 4.1 mEq/L (3.5-5.1)
[2016-08-19 07:03] LABS: CREATININE - SERUM 7.4 mg/dL (0.6-1.2)
[2016-08-19] MEDS: INSULIN ASPART SLIDING SCALE 100 UNITS/ML UNIT SUBQ SCH ×4 (07:32→21:46)
[2016-08-19] MEDS: Pantoprazole 40 mg EC Tab PO SCH (07:39)
[2016-08-19 08:12] LABS: ANION GAP 8.4 (7.0-16.0); BUN/CREATININE RATIO 6.4; CALCIUM SERUM 8.5 mg/dL (8.6-10.3); CARBON DIOXIDE 29.9 mEq/L (21.0-31.0); POTASSIUM SERUM 4.3 mEq/L (3.5-5.1)
[2016-08-19 08:19] LABS: CREATININE - SERUM 7.6 mg/dL (0.6-1.2)
[2016-08-19] MEDS: Atorvastatin Calcium 10 MG TAB PO SCH (08:53)
[2016-08-19] MEDS: Ferrous Sulfate 300 MG/5 ML UDC PO SCH ×2 (08:53→16:31)
[2016-08-19] MEDS: Vitamin B Complex w/Vitamin C Tab PO SCH (08:53)
[2016-08-19] MEDS: CINACALCET 30 MG PO SCH (08:54)
[2016-08-19] MEDS: Lactobacillus Rhamnosus 10 Billion CFU Capsule PO SCH (08:54)
--- NOTE | 2016-08-20 02:09 | Progress Notes ---
PROBLEMS: 1. Mild patchy pneumonitis. 2. Right lower lobe infiltrate, much better. 3. Esophageal issues being handled by GI. 4. Chronic renal failure on hemodialysis. SYMPTOMS: Nil. Sleeping, less nausea and vomiting, no specific new symptoms otherwise. PHYSICAL EXAMINATION: VITAL SIGNS: The patient's temperature is 97.6, blood pressure 122/75, respiration 18, sating 98 on room air. CHEST: Appears to be clear with diminished air entry. HEART: Regular. ABDOMEN: Soft, nontender. LABORATORY DATA: Electrolytes are okay except for creatinine 7.6. Chest x-ray shows mild interstitial changes, otherwise fairly clear. No further dilatation of the esophageal area could be seen. ASSESSMENT: The patient clinically appears to be doing much better, improving. PLANS AND SUGGESTIONS: We will go ahead and continue current treatment per GI. Respiratory dangelo, reasonably stable, no acute new plan. We will go and continue current treatment. We will follow through other studies down the line and go from there. [facility]# [id number]
[2016-08-20 06:24] LABS: % BASOPHILS 0.6 % (0.0-2.0); % EOSINOPHILS 3.9 % (0.0-5.0); % LYMPHOCYTES 25.7 % (20.0-50.0); % MONOCYTES 10.9 % (2.0-10.0); % NEUTROPHILS 58.9 % (40.0-80.0); HEMOGLOBIN 9.9 gm/dL (11.7-16.1); MEAN CELL VOLUME 92.7 fl (81-100); MEAN CORPUSCULAR HEMOGLOBIN 31.8 pg (27.0-31.0); MEAN CORPUSCULAR HGB CONC 34.3 pg (28.0-36.0); MEAN PLATELET VOLUME 7.1 fl; NEUTROPHILE ABSOLUTE 4.6 Th/cmm (1.8-8.0); PLATELET COUNT 319 Th/cmm (150-400); WHITE BLOOD COUNT 7.7 Th/cmm (4.8-10.8)
--- NOTE | 2016-08-20 06:24 | Progress Notes ---
SUBJECTIVE: The patient is awake and alert. The patient is receiving inpatient rehab therapy. The patient is receiving inpatient hemodialysis. The patient is on liquid diet. The patient complains of diarrhea. OBJECTIVE: VITAL SIGNS: Temperature 97.6, pulse 72, blood pressure 120/75, respirations 18, O2 saturation 98% on room air. CARDIOVASCULAR: S1, S2. RESPIRATORY: Clear. ABDOMEN: Soft. Positive bowel sounds. LABORATORY DATA: Chemistry: Sodium 136, potassium 4.3, chloride 92, bicarbonate 29, anion gap per labs, BUN 49, creatinine 7.6, GFR is 5.6, glucose 91, calcium is 8.5. ASSESSMENT: 1. End-stage renal disease, hemodialysis dependent. 2. Hypercalcemia. 3. Intractable nausea and vomiting (resolved). 4. Hypertension. 5. Anemia. 6. Diabetes mellitus. 7. Status post section. 8. Status post arteriovenous fistula. 9. Cholelithiasis. 10. Nausea and vomiting. 11. Esophagitis. 12. Gastritis. PLAN: Continue current medication and treatment. Obtain labs in the a.m. Continue inpatient hemodialysis. Continue inpatient rehab therapy. Awaiting labs to see results from EGD. The patient is changed from Pepcid to Protonix. Recommendation from GI, the patient to have outpatient motility and manometry studies. Further consults. JOB# [id number] ZULEMA
[2016-08-20 06:40] LABS: ANION GAP 12.5 (7.0-16.0); BUN/CREATININE RATIO 6.2; CALCIUM SERUM 8.5 mg/dL (8.6-10.3); CARBON DIOXIDE 27.7 mEq/L (21.0-31.0); MAGNESIUM 2.3 mg/dL (1.9-2.7); PHOSPHOROUS 3.8 mg/dL (2.5-5.0); POTASSIUM SERUM 5.2 mEq/L (3.5-5.1)
[2016-08-20 06:50] LABS: HEMATOCRIT 28.8 % (35.0-45.0)
[2016-08-20] MEDS: INSULIN ASPART SLIDING SCALE 100 UNITS/ML UNIT SUBQ SCH ×2 (07:54→13:06)
[2016-08-20] MEDS: Ferrous Sulfate 300 MG/5 ML UDC PO SCH (08:17)
[2016-08-20] MEDS: Lactobacillus Rhamnosus 10 Billion CFU Capsule PO SCH (08:17)
[2016-08-20] MEDS: Vitamin B Complex w/Vitamin C Tab PO SCH (08:18)
[2016-08-20] MEDS: Atorvastatin Calcium 10 MG TAB PO SCH (08:18)
[2016-08-20] MEDS: CINACALCET 30 MG PO SCH (08:18)
[2016-08-20] MEDS: Pantoprazole 40 mg EC Tab PO SCH (08:18)
--- NOTE | 2016-08-21 05:07 | Progress Notes ---
SUBJECTIVE: The patient is awake, alert. The patient received inpatient hemodialysis. OBJECTIVE: VITAL SIGNS: Temperature 97.5, pulse is 73, blood pressure ____, respiratory rate 19, O2 saturation 98% on room air. CARDIOVASCULAR: S1, S2. RESPIRATORY: Clear. GASTROINTESTINAL: Soft, positive bowel sounds. LABORATORY DATA: Hematology, WBC 7.7, hemoglobin 9.9, hematocrit 28.8, platelet count of 319, 10% monocytes. Chemistry, sodium is 134, potassium 5.2, chloride 99, bicarbonate 27, anion gap of 12, BUN 56, creatinine 9.0, GFR is 4.6, glucose 82, calcium 8.5, phosphorus 3.8, mag is 2.3. MICROBIOLOGY: No new microbiology results. RADIOLOGY: No new radiology results. ASSESSMENT: 1. Anemia. 2. Hyponatremia. 3. Hyperkalemia. 4. End-stage renal disease. 5. Hemodialysis dependent. 6. Hypercalcemia. 7. Hypertension. 8. Diabetes mellitus. 9. Status post . 10. Status post arteriovenous fistula. 11. Abdominal pain resolved 12. Diarrhea resolved. 13. Esophagitis. 14. Gastritis. PLAN: Continue current medications. Continue inpatient dialysis. Further recommendations per consult. plan manager for discharge planning. JOB# [id number] ZULEMA
--- NOTE | 2016-08-21 05:18 | Progress Notes ---
PROBLEM LIST: 1. Pneumonia. 2. Gastritis with esophagitis. 3. Chronic renal failure, on hemodialysis. SYMPTOMS: Nil. Feeling much better. No specific new symptoms. She is preparing to go home. PHYSICAL EXAMINATION: VITAL SIGNS: The patient's temperature is 97.5, the patient's blood pressure 138/80, saturation is 98% on room air. ENT: Shows no new changes. CHEST: Shows occasional rales with diminished air entry. HEART: Regular. ABDOMEN: Soft, nontender. LABORATORY DATA: The patient's white count is 7.7. Electrolytes show potassium 6.2, creatinine ____. ASSESSMENT: The patient clinically appears to be reasonably stable. PLANS AND SUGGESTIONS: We agree with the plan for discharge. Will try to follow up as an outpatient for sleep apnea syndrome if agreeable with family and otherwise. Wish her good luck and go from there. JOB# [id number]
--- NOTE | 2016-08-21 10:06 | Pathology Report ---
[id number] Collection date: 08/18/2016 Surgeon: Dr. Valerio Marroquin Specimen Description: Esophageal biopsy Gross Description: Received in formalin are four stearns soft tissue fragments ranging from 0.1 to 0.2 cm in greatest dimension. Totally submitted in one cassette. Microscopic Description: The histologic sections show esophageal squamous mucosa with a focal area of superficial mucosal ulceration with associated acute and chronic inflammation consisting of neutrophils and lymphocytes. The PAS stain shows no evidence for fungal organisms. The Alcian blue stain shows no abnormalities. Diagnosis: Superficial mucosal ulceration with acute and chronic inflammation (esophageal biopsy). [facility]# [id number] [facility]
--- NOTE | 2016-08-30 19:34 | Discharge Summary ---
DISCHARGE DIAGNOSES: 1.Anemia. 2.Hyponatremia. 3.Hyperkalemia. 4.End-stage renal disease, hemodialysis dependent. 5.Hypercalcemia. 6.Hypertension. 7.Diabetes mellitus. 8.Status post . 9.AV fistula. 10.Abdominal pain, resolved. 11.Diarrhea (resolved). 12. Esophagitis and gastritis. HOSPITAL COURSE: The patient is a 70-year-old female who was brought in by family for recurrent nausea, vomiting. The patient was admitted with a diagnosis of intermittent nausea and vomiting, elevated troponin level, hypertension, end-stage renal disease hemodialysis dependent, diabetes mellitus, dyslipidemia, anemia of chronic disease, status post AV fistula. The patient was admitted to ICU for elevated troponins levels. Cardiology consultation obtained from Dr. Carey Spivey. Pulmonary Critical Care consultation obtained from Dr. Caleb Cooley. Per recommendation of Pulmonary Critical Care, the patient had a recent tracheobronchitis, stable. The patient had haziness, question is effusion versus infiltrate. The patient had severe obstructive sleep apnea. The patient had hypertension, diabetes mellitus, dyslipidemia, nausea and vomiting from GERD and gastroparesis. The patient was ordered leo cultures. The patient had CT of the chest. CT chest performed on 08/15/2016, showed marked distention of esophagus. The patient developed hiatal hernia versus achalasia and esophageal narrowing, bibasilar changes and focal consolidation involving the posterior and inferior aspect of the right upper lobe, mild atherosclerotic vascular disease and gallbladder with gallstones, bilateral lung nodules. For the patient's esophageal distention, the patient was referred to GI consultation from Dr. Marroquin. Per Cardiology, echocardiogram performed, the patient showed LV dimension and showed ejection fraction of 60% to 65%, left ventricular hypertrophy, aortic valve sclerotic without stenosis or dysfunction, mitral valve calcification. ____ performed 08/16/2016 ____ gallbladder, diminished size right kidney due to chronic ____ disease and left renal cyst. EGD performed on 08/18/2016 showed esophagitis and gastritis. Pathology report from EGD shows severe mucosal erosion with chronic inflammation. The patient initially from ICU was transferred to telemetry unit. After clearance from consultants, patient was discharged home on 08/20/2016. JOB# [id number]
== END 2016-08-20 16:00 | disposition home or self-care (01) | DRG 243 ==
LOC: ER 21:26 → ICU 23:50 → UNDOADMIN 08-14 00:32 → ICU 08-14 00:32 → TELE 08-17 07:30
PROVIDERS: ADMIT Preventive Medicine Preventive Medicine/Occupational Environmental Medicine; ATTEND Preventive Medicine Preventive Medicine/Occupational Environmental Medicine
PROC: 5A1D60Z (ICD-10-PCS; 2016-08-14)
PROC: 0DB58ZX Excision of Esophagus, Via Natural or Artificial Opening Endoscopic, Diagnostic (ICD-10-PCS; principal; 2016-08-18)
DX: K20.9 Esophagitis, unspecified (principal); J18.9 Pneumonia, unspecified organism; N18.6 End stage renal disease; E11.22 Type 2 diabetes mellitus with diabetic chronic kidney disease; I12.0 Hypertensive chronic kidney disease with stage 5 chronic kidney disease or end stage renal disease; E88.81 Metabolic syndrome and other insulin resistance; K22.8 Other specified diseases of esophagus; E83.39 Other disorders of phosphorus metabolism; E78.5 Hyperlipidemia, unspecified; D63.8 Anemia in other chronic diseases classified elsewhere; G47.33 Obstructive sleep apnea (adult) (pediatric); E11.65 Type 2 diabetes mellitus with hyperglycemia; K80.20 Calculus of gallbladder without cholecystitis without obstruction; E83.52 Hypercalcemia; E87.1 Hypo-osmolality and hyponatremia; E87.5 Hyperkalemia; K29.70 Gastritis, unspecified, without bleeding; Z99.2 Dependence on renal dialysis; Z82.49 Family history of ischemic heart disease and other diseases of the circulatory system; Z83.3 Family history of diabetes mellitus
CPT/HCPCS: 36415-UA; 36600-90; 71010-TC; 71020-TC; 71250-TC; 76700-TC; 80048-TC; 80053-TC; 82550-TC; 82803-TC; 82948-90; 83036-90; 83735-TC; 84100-TC; 84484-TC; 85007-TC; 85025-TC; 85027-TC; 85610-TC; 85652-TC; 86141-TC; 87338-TC; 88305-90; 88312-90; 88313-90; 90799; 90937; 93005; J0885; J1644; J1815; J2405; J2704; J7030; X3904; Z7502; Z7610

== ENCOUNTER 2016-10-02 18:38 | Emergency (ER) | payer MEDICAID ==
--- NOTE | 2016-10-02 18:44 | ED Physician Chart ---
Chief Complaint/HPI - Patient Information Date Seen:: 10/02/16 Time Seen:: 18:44 Chief Complaint:: abdominal pain History of Present Illness:: 70-year-old female with end stage renal disease on renal dialysis, complains of acute, constant, aching, moderate to severe, 8 out of 10 at worst, nonradiating , right sided abdominal pain since 9:00 this morning. Nothing seems to make it better or worse. Had dialysis this morning but pain persisted. Allergies:: Allergies Allergy/AdvReac Type Severity Reaction Status Date / Time No Known Allergies Allergy Verified 05/17/16 16:44 Historian:: Patient Review:: Nurse's Note Reviewed Review of Systems - Review of Systems Other: Complete system review otherwise unremarkable except as noted in history of present illness. Past Medical History - Past Medical History Past Medical History: HTN, Dyslipidemia, ESRD Family History: None Social History: Non Smoker, No Alcohol, No Drug Use, Other Surgical History: other (venous dialysis shunt right upper extremity) Psychiatricy History: None Medication: Reviewed Family Medical History - Family Member Mother History Unknown: Yes Ethnicity: Living Status: Hx Family Diabetes: Yes Physical Exam - Physical Examination Other:: INITIAL VITAL SIGNS: Reviewed by me GENERAL: Alert and interactive. No acute distress HEAD: Head is normocephalic and atraumatic EYES: EOMI. PERRL. No scleral icterus. No conjunctival injection ENT: Moist mucous membranes. NECK: Supple. No masses. Full range of motion RESPIRATORY: No tachypnea. Clear breath sounds bilaterally. No wheezing, rales, or rhonchi CV: Regular rate and rhythm. No murmurs, rubs, or gallops ABDOMEN: Soft, obese, non-distended, generalized tenderness to palpation in the right quadrant. No guarding. No rebound. No masses. EXTREMITIES: No deformity. No cyanosis. No edema. SKIN: Warm and dry. No obvious rashes. NEUROLOGIC: Alert and oriented. Face is symmetric. Speech is normal. Moves all extremities equally. Motor and sensory distally intact. Labs/Radiology/EKG Results - Radiology Results Results: CT abdomen and pelvis without contrast. Preliminary report per radiology. Distended gallbladder with gallstones recommend ultrasound Ultrasound right upper quadrant All stone filled gallbladder ED Septic Shock - . Is Septic Shock (SBP<90, OR Lactate>4 mmol\L) present?: No Reassessment (Disposition) - Reassessment Reassessment:: Patient has acute abdominal pain due to acute biliary colic. Signs of infection or obstruction. Received IV analgesics IV antiemetics. Pain greatly improved. Recommended follow-up PCP 1-2 days. Possibly needs elective cholecystectomy. However this is a 70-year-old end-stage renal disease likely high risk for surgery. Return to ER precautions. Patient understands and agrees the plan. - Diagnosis Diagnosis:: Acute right upper quadrant abdominal pain due to acute renal colic. End-stage renal disease on dialysis Hypertension - Aftercare/Follow up Instructions Aftercare/Follow-Up Instructions:: Counseled pt regarding lab results/diagnosis & need follow up, Refer to Discharge Instructions Medication Prescribed:: Pepcid - Patient Disposition Discharge/Transfer:: Home Time:: 20:54 Condition at Disposition:: Improved ED Discharge Plan - Patient Disposition Admit/Discharge/Transfer: PT DISCHARGED HOME Condition at Disposition: Improved Instructions: Biliary Colic
[2016-10-02] MEDS ORDERED: Donnatal Liq 5 ML UDC PO ONE (18:45)
[2016-10-02] MEDS ORDERED: Maalox 30 mL Cup PO ONE (18:45)
[2016-10-02] MEDS ORDERED: Prochlorperazine 5 mg/mL 2mL Vial IVP STA (18:49)
[2016-10-02] MEDS ORDERED: Sodium Chloride 0.9% 1,000 ML IV ONE (18:49)
[2016-10-02 19:25] LABS: % BASOPHILS 0.7 % (0.0-2.0); % EOSINOPHILS 2.9 % (0.0-5.0); % LYMPHOCYTES 25.9 % (20.0-50.0); % MONOCYTES 11.5 % (2.0-10.0); MEAN CELL VOLUME 88.6 fl (81-100); MEAN CORPUSCULAR HEMOGLOBIN 29.4 pg (27.0-31.0); MEAN CORPUSCULAR HGB CONC 33.2 pg (28.0-36.0); MEAN PLATELET VOLUME 6.8 fl; NEUTROPHILE ABSOLUTE 3.6 Th/cmm (1.8-8.0); RED BLOOD COUNT 4.28 Mil/cmm (3.80-5.20); RED CELL DISTRIBUTION WIDTH 15.6 % (11.5-20.0)
[2016-10-02 19:27] LABS: HEMATOCRIT 37.9 % (35.0-45.0); HEMOGLOBIN 12.6 gm/dL (11.7-16.1); PLATELET COUNT 209 Th/cmm (150-400); WHITE BLOOD COUNT 6.1 Th/cmm (4.8-10.8)
[2016-10-02 19:40] LABS: ALB/GLOB RATIO 1.1 (1.0-1.8); ANION GAP 8.7 (7.0-16.0); BILIRUBIN,TOTAL 0.5 mg/dL (0.3-1.0); BUN/CREATININE RATIO 7.7; CALCIUM SERUM 10.6 mg/dL (8.6-10.3); CARBON DIOXIDE 34.3 mEq/L (21.0-31.0)
[2016-10-02 19:41] LABS: CREATININE - SERUM 5.3 mg/dL (0.6-1.2)
[2016-10-02] MEDS ORDERED: Maalox 30 mL Cup ONE (20:11)
[2016-10-02] MEDS ORDERED: Donnatal Liq 5 ML UDC ONE (20:12)
[2016-10-02 20:19] LABS: URINE BILIRUBIN NEGATIVE (NEGATIVE); URINE BLOOD TRACE (NEGATIVE); URINE COLOR YELLOW; URINE GLUCOSE (UA) NEGATIVE (NEGATIVE); URINE KETONE NEGATIVE (NEGATIVE); URINE PH 8.5; URINE PROTEIN >300 mg/dL (NEGATIVE); URINE UROBILINOGEN 0.2 E.U./dL (0.2 - 1.0)
[2016-10-02 20:20] LABS: URINE BACTERIA 1+ /hpf (NONE SEEN); URINE EPITHELIAL CELLS MODERATE /lpf (FEW); URINE RBC 0-2 /hpf (0-5)
[2016-10-02] MEDS ORDERED: Prochlorperazine 5 mg/mL 2mL Vial ONE (20:26)
[2016-10-02] MEDS ORDERED: Morphine Sulfate 2 mg/mL 1mL Syr ONE (20:39)
--- NOTE | 2016-10-03 10:33 | Diagnostic Imaging Report ---
CT abdomen and pelvis without intravenous contrast Indication: Mid abdomen and right flank pain Comparison: None, Technique: Axial images were obtained from the lung bases to the bilateral proximal femurs without IV contrast. Coronal reconstructions were made. total DLP: [id number], [id number] FINDINGS: Hypoventilatory and atelectatic changes of the lung bases are noted. A small sized hiatal hernia is noted. Assessment of the solid organs is limited due to lack of IV contrast. Exam is also limited due to motion. No evidence of focal hepatic lesions. Distended gallbladder is seen with gallstones. There are focal nonspecific inflammatory changes seen along beneath the right anterior abdominal wall region anterior to the right lobe of the liver with small fluid seen in this region. No focal splenic lesions. Pancreatic gland atrophy is noted with no evidence of focal lesions. No focal adrenal lesions. Bilateral renal atrophy is noted. Subcentimeter low-density lesions in the left kidney are noted to small to characterize. No hydronephrosis. Uterine calcifications are noted. There is atrophy of the anterior abdominal wall musculature with diffuse protrusion of bowel loops. No evidence of strangulation. Diffuse atherosclerosis is seen. Advanced degenerative changes of the spine are noted. There is 7 mm anterolisthesis of L5 on S1 likely due to facet arthropathy. IMPRESSION: Distended gallbladder with gallstones. Recommend clinical correlation and further assessment with ultrasound Small amount of free fluid and focal inflammatory changes seen beneath the anterior abdominal wall located anterior to the right lobe of the liver. Clinical correlation and follow-up is recommended. Atrophy of the anterior abdominal wall musculature with wide-base protrusion of bowel loops. No evidence of strangulation. Bilateral renal atrophy Diffuse atherosclerotic vascular disease. Small hiatal hernia. Degenerative changes. There is 7 mm anterolisthesis of L5 on S1 likely due to facet arthropathy. Bibasal atelectatic changes.
--- NOTE | 2016-10-03 10:42 | Diagnostic Imaging Report ---
Ultrasound right upper quadrant limited History: Gallstones Comparison: CT abdomen and pelvis the same day and ultrasound abdomen on 08/16/2016 Findings: Diffuse stone filled gallbladder is seen. The gallbladder wall appears mildly prominent. The common bile duct measures 5 mm. No evidence of pericholecystic fluid. IMPRESSION: Findings most suggestive of a diffuse stone filled gallbladder. Mildly prominent gallbladder wall is also noted. Please correlate with clinical findings.
== END 2016-10-02 22:05 | disposition home or self-care (01) ==
LOC: ER 18:38
DX: N23 Unspecified renal colic (principal); I12.0 Hypertensive chronic kidney disease with stage 5 chronic kidney disease or end stage renal disease; N18.6 End stage renal disease; E78.5 Hyperlipidemia, unspecified; Z99.2 Dependence on renal dialysis
CPT/HCPCS: 99285; 74176; 96374; 76705; 96375; 36415; 85025; 81001; 82150; 83690; 80053; J2270; J1885; J2405; J0780

== ENCOUNTER 2016-10-03 23:00 | Emergency (ER) | payer MEDICAID ==
--- NOTE | 2016-10-03 23:08 | ED Physician Chart ---
Chief Complaint/HPI - Patient Information Date Seen:: 10/03/16 Time Seen:: 23:01 Chief Complaint:: abdominal pain History of Present Illness:: 70-year-old female with history renal disease on hemodialysis, seen last night and diagnosed with biliary colic/symptomatic cholelithiasis, here with acute, constant, aching, cramping, severe, 8 out of 10, nonradiating, right upper quadrant pain that started about 2 hours prior to arrival. Allergies:: Allergies Allergy/AdvReac Type Severity Reaction Status Date / Time No Known Allergies Allergy Verified 05/17/16 16:44 Historian:: Patient Review:: Nurse's Note Reviewed Review of Systems - Review of Systems Other: Complete system review otherwise unremarkable except as noted in history of present illness. Past Medical History - Past Medical History Past Medical History: HTN, DM, Dyslipidemia, ESRD, Other (cholelithiasis) Family History: None Social History: Non Smoker, No Alcohol, No Drug Use, Other (lives with family) Surgical History: other (venous arterial dialysis shunt) Psychiatricy History: None Medication: Reviewed Family Medical History - Family Member Mother History Unknown: Yes Ethnicity: Living Status: Hx Family Diabetes: Yes Physical Exam - Physical Examination Other:: INITIAL VITAL SIGNS: Reviewed by me GENERAL: Alert and interactive. No acute distress HEAD: Head is normocephalic and atraumatic EYES: EOMI. PERRL. No scleral icterus. No conjunctival injection ENT: Moist mucous membranes. NECK: Supple. No masses. Full range of motion RESPIRATORY: No tachypnea. Clear breath sounds bilaterally. No wheezing, rales, or rhonchi CV: Regular rate and rhythm. No murmurs, rubs, or gallops ABDOMEN: Soft, obese, non-distended, tenderness to palpation in the right upper quadrant. No guarding. No rebound. No masses. EXTREMITIES: No deformity. No cyanosis. No edema. SKIN: Warm and dry. No obvious rashes. NEUROLOGIC: Alert and oriented. Face is symmetric. Speech is normal. Moves all extremities equally. Motor and sensory distally intact. Labs/Radiology/EKG Results - Lab Results Results: Lab Results 10/03/16 10/03/16 Range/Units 23:30 23:30 WBC 8.6 D (4.8-10.8) Th/cmm RBC 4.07 (3.80-5.20) Mil/cmm Hgb 12.0 (11.7-16.1) gm/dL Hct 36.1 (35.0-45.0) % MCV 88.5 (81-100) fl MCH 29.4 (27.0-31.0) pg MCHC Differential 33.2 (28.0-36.0) pg RDW 15.7 (11.5-20.0) % Plt Count 190 (150-400) Th/cmm MPV 7.2 fl Neutrophils % 65.9 (40.0-80.0) % Lymphocytes % 20.7 (20.0-50.0) % Monocytes % 10.1 H (2.0-10.0) % Eosinophils % 2.7 (0.0-5.0) % Basophils % 0.6 (0.0-2.0) % Sodium 135 L (136-145) mEq/L Potassium 6.8 H* (3.5-5.1) mEq/L Chloride 96 L (98-107) mEq/L Carbon Dioxide 32.0 H (21.0-31.0) mEq/L Anion Gap 13.8 (7.0-16.0) BUN 71 H (7-25) mg/dL Creatinine 7.3 H* (0.6-1.2) mg/dL Est GFR ( Amer) 7.1 (>90) ml/min Est GFR (Non-Af Amer) 5.9 ml/min BUN/Creatinine Ratio 9.7 Glucose 148 H (70-105) mg/dL Calcium 10.1 (8.6-10.3) mg/dL Total Bilirubin 0.5 (0.3-1.0) mg/dL AST 22 (13-39) U/L ALT 12 (7-52) U/L Alkaline Phosphatase 88 (34-104) U/L Total Protein 7.4 (6.0-8.3) gm/dL Albumin 3.9 (3.7-5.3) gm/dL Globulin 3.5 gm/dL Albumin/Globulin Ratio 1.1 (1.0-1.8) Lipase 38 (11-82) U/L - Radiology Results Results: CT abdomen and pelvis were performed on 10/02/2016 (yesterday) Consistent with gallstones Ultrasound right upper quadrant performed on 10/02/2016 (yesterday) Diffuse stone filled gallbladder. Mildly prominent gallbladder wall. No pericholecystic fluid. ED Septic Shock - . Is Septic Shock (SBP<90, OR Lactate>4 mmol\L) present?: No Reassessment (Disposition) - Reassessment Reassessment:: This patient was seen last night and diagnosed with symptomatic cholelithiasis. At that point there was no evidence of infection. Ultrasound and CT both demonstrated gallstones. Labs showed no obstructive pattern. No white count. Similar findings tonight with the blood work. Consistent with incisional disease on dialysis. Patient received IV analgesics. Symptoms improved. Explained to the patient and the daughter that the patient will need to follow- up with general surgery for elective cholecystectomy. Gave return to ER precautions including signs of fever and/or prolonged abdominal pain. Both the patient and the daughter explained that they understood and agreed with the plan. Patient will see her primary care physician tomorrow at dialysis. Reassessment Condition:: Improved - Diagnosis Diagnosis:: Acute right upper quadrant abdominal pain due to symptomatic cholelithiasis - Aftercare/Follow up Instructions Aftercare/Follow-Up Instructions:: Counseled pt regarding lab results/diagnosis & need follow up, Refer to Discharge Instructions Medication Prescribed:: [place] - Patient Disposition Discharge/Transfer:: Home Time:: 00:47 Condition at Disposition:: Improved
[2016-10-03 23:44] LABS: % BASOPHILS 0.6 % (0.0-2.0); % EOSINOPHILS 2.7 % (0.0-5.0); % LYMPHOCYTES 20.7 % (20.0-50.0); % MONOCYTES 10.1 % (2.0-10.0); % NEUTROPHILS 65.9 % (40.0-80.0); HEMATOCRIT 36.1 % (35.0-45.0); MEAN CELL VOLUME 88.5 fl (81-100); MEAN CORPUSCULAR HEMOGLOBIN 29.4 pg (27.0-31.0); MEAN CORPUSCULAR HGB CONC 33.2 pg (28.0-36.0); MEAN PLATELET VOLUME 7.2 fl; NEUTROPHILE ABSOLUTE 5.6 Th/cmm (1.8-8.0); PLATELET COUNT 190 Th/cmm (150-400); RED BLOOD COUNT 4.07 Mil/cmm (3.80-5.20); RED CELL DISTRIBUTION WIDTH 15.7 % (11.5-20.0)
[2016-10-03 23:53] LABS: WHITE BLOOD COUNT 8.6 Th/cmm (4.8-10.8)
[2016-10-03] MEDS ORDERED: Morphine Sulfate 4 mg/mL 1mL Syr ONE (23:58)
[2016-10-03] MEDS ORDERED: Maalox 30 mL Cup ONE (23:58)
[2016-10-03] MEDS ORDERED: Donnatal Liq 5 ML UDC ONE (23:58)
[2016-10-04 00:01] LABS: ALB/GLOB RATIO 1.1 (1.0-1.8); ANION GAP 13.8 (7.0-16.0); BILIRUBIN,TOTAL 0.5 mg/dL (0.3-1.0); BUN/CREATININE RATIO 9.7; CALCIUM SERUM 10.1 mg/dL (8.6-10.3)
[2016-10-04] MEDS: Maalox 30 mL Cup PO ONE (00:01)
[2016-10-04] MEDS: Donnatal Liq 5 ML UDC PO ONE (00:01)
[2016-10-04] MEDS: Morphine Sulfate 4 mg/mL 1mL Syr IVP ONE (00:10)
[2016-10-04 00:37] LABS: CREATININE - SERUM 7.3 mg/dL (0.6-1.2); POTASSIUM SERUM 6.8 mEq/L (3.5-5.1)
== END 2016-10-04 01:00 | disposition home or self-care (01) ==
LOC: ER 23:00
DX: K80.20 Calculus of gallbladder without cholecystitis without obstruction (principal); I13.11 Hypertensive heart and chronic kidney disease without heart failure, with stage 5 chronic kidney disease, or end stage renal disease; N18.6 End stage renal disease; E11.9 Type 2 diabetes mellitus without complications; E78.5 Hyperlipidemia, unspecified
CPT/HCPCS: 36415-UA; 80053-TC; 83690-TC; 85025-TC; 96374; 96375; J1885; J2405; Z7502